=== PATIENT | female | born 1935 | race African-American/Black ===

== ENCOUNTER 2017-09-08 10:53 | Inpatient (IN) ==
[2017-09-08] MEDS ORDERED: ACETAMINOPHEN 325 MG TABLET PO PRN (11:07)
[2017-09-08] MEDS: SODIUM CHLORIDE 0.45% 1,000 ML IV SCH (12:32)
[2017-09-08] MEDS: LEVOFLOXACIN INJ 500 MG in PREMIX 1 EACH IV SCH (13:28)
[2017-09-08 14:05] LABS: % Iron Saturation 14.4 % (18-50); Ferritin 256.2 ng/ml (8-252); Lactic Acid 0.9 MMOL/L (0.4-2.0)
[2017-09-08 14:13] LABS: Folate > 24.0 NG/ML (5.4-24.0); Vitamin B12 1289 PG/ML (211-911)
[2017-09-08] MEDS: cefTRIAXone 1,000 MG in SYRINGE 1 EACH IV SCH (14:50)
[2017-09-08 16:46] LABS: Apearance,Urine Slightly Hazy (Clear); Bacteria,Urine Occasional /HPF (Few); Bilirubin,Urine Negative (Negative); Blood, Urine Negative (Negative); Glucose,Urine (UA) Negative (Negative); Ketones,Urine Negative (Negative); Mucus,Urine Occasional /LPF (Occasional); Nitrite,Urine Positive (Negative); Protein,Urine Negative; RBC,Urine 1 /HPF (0-4); Renal Epithelial Cells,Urine Occasional /HPF (<1); Squamous Epithelial Cell,Urine Occasional /HPF (0-10); Urine Color Yellow (Yellow); Urine Specific Gravity 1.015 (1.001-1.035); Urine Urobilinogen < 2.0 EU/DL (0.2-1.0); WBC,Urine 3 /HPF (0-6)
[2017-09-08] MEDS: FAMOTIDINE 20 MG TABLET PO SCH (20:46)
[2017-09-08] MEDS: BISACODYL 5 MG TABLET PO SCH (20:46)
[2017-09-08] MEDS: DOCUSATE SODIUM 100 MG CAPSULE PO SCH (20:46)
[2017-09-08] MEDS: MONTELUKAST 10 MG TABLET PO SCH (20:46)
[2017-09-09 05:40] LABS: Basophils % 0.4 % (0.0-0.8); Hemoglobin 7.9 GM/DL (12.0-16.0); Immature Granulocytes % 0.4 %; Immature Granulocytes Absolute 0.02 #; Lymphocytes # 0.7 10*3/uL (1.4-4.0); Lymphocytes % 13.6 % (21.3-54.2); Mean Corpuscular HGB Conc 32.9 GM/DL (32-36); Mean Corpuscular Hemoglobin 31 PG (27-34); Mean Corpuscular Volume 93.4 FL (87-102); Monocytes # 0.7 10*3/uL (0.11-0.8); Monocytes % 12.3 % (1.7-12.7); Neutrophils % 73.3 % (38.7-73.9); Platelet Count 213 T/CUMM (130-400); Red Blood Count 2.57 MC/CUMM (3.8-5.5); Red Cell Distribution Width 14.1 % (9.3-17.3); White Blood Count 5.4 T/CUMM (4-12)
[2017-09-09] MEDS ORDERED: SODIUM CHLORIDE 0.9% 1,000 ML IV PRN ×2 (07:47→09:58)
[2017-09-09] MEDS: SODIUM CHLORIDE 0.45% 1,000 ML IV SCH (09:32)
[2017-09-09] MEDS: LEVOFLOXACIN INJ 500 MG in PREMIX 1 EACH IV SCH (09:33)
[2017-09-09] MEDS: PANTOPRAZOLE 40 MG TABLET PO SCH (09:37)
[2017-09-09] MEDS: NITROFURANTOIN MACROCRYSTALS 50 MG CAPSULE PO SCH (09:37)
[2017-09-09] MEDS: ASCORBIC ACID 500 MG TABLET PO SCH (09:37)
[2017-09-09] MEDS: cefTRIAXone 1,000 MG in SYRINGE 1 EACH IV SCH (09:37)
[2017-09-09] MEDS: CETIRIZINE 10 MG TABLET PO SCH (09:38)
[2017-09-09] MEDS: ASPIRIN EC 81 MG TABLET PO SCH (09:38)
[2017-09-09] MEDS: GLUCOSAMINE 500 MG TABLET PO SCH (09:38)
[2017-09-09] MEDS: DOCUSATE SODIUM 100 MG CAPSULE PO SCH ×2 (09:38→20:22)
[2017-09-09] MEDS: BISACODYL 5 MG TABLET PO SCH ×2 (09:38→20:21)
[2017-09-09 16:44] LABS: Hemoglobin 10.8 GM/DL (12.0-16.0)
[2017-09-09] MEDS: MONTELUKAST 10 MG TABLET PO SCH (20:21)
[2017-09-09] MEDS: FAMOTIDINE 20 MG TABLET PO SCH (20:21)
[2017-09-10] MEDS: ASPIRIN EC 81 MG TABLET PO SCH (09:14)
[2017-09-10] MEDS: GLUCOSAMINE 500 MG TABLET PO SCH (09:14)
[2017-09-10] MEDS: ASCORBIC ACID 500 MG TABLET PO SCH (09:14)
[2017-09-10] MEDS: NITROFURANTOIN MACROCRYSTALS 50 MG CAPSULE PO SCH (09:14)
[2017-09-10] MEDS: BISACODYL 5 MG TABLET PO SCH ×2 (09:14→21:03)
[2017-09-10] MEDS: DOCUSATE SODIUM 100 MG CAPSULE PO SCH ×2 (09:14→21:03)
[2017-09-10] MEDS: CETIRIZINE 10 MG TABLET PO SCH (09:15)
[2017-09-10] MEDS: cefTRIAXone 1,000 MG in SYRINGE 1 EACH IV SCH (09:15)
[2017-09-10] MEDS: LEVOFLOXACIN INJ 500 MG in PREMIX 1 EACH IV SCH (09:15)
[2017-09-10] MEDS: PANTOPRAZOLE 40 MG TABLET PO SCH (09:15)
[2017-09-10] MEDS: SODIUM CHLORIDE 0.45% 1,000 ML IV SCH (11:46)
[2017-09-10] MEDS: ONDANSETRON 4 MG/2 ML VIAL IV PRN (13:48)
[2017-09-10] MEDS: FAMOTIDINE 20 MG TABLET PO SCH (21:03)
[2017-09-10] MEDS: MONTELUKAST 10 MG TABLET PO SCH (21:03)
[2017-09-11 06:30] LABS: Basophils % 0.5 % (0.0-0.8); Hematocrit 31.8 VOL% (35.7-47.0); Hemoglobin 10.4 GM/DL (12.0-16.0); Immature Granulocytes % 0.6 %; Immature Granulocytes Absolute 0.04 #; Lymphocytes # 0.6 10*3/uL (1.4-4.0); Lymphocytes % 10.2 % (21.3-54.2); Mean Corpuscular HGB Conc 32.7 GM/DL (32-36); Mean Corpuscular Hemoglobin 30 PG (27-34); Mean Corpuscular Volume 90.3 FL (87-102); Mean Platelet Volume 9.8 FL (9.6-12.0); Monocytes # 0.7 10*3/uL (0.11-0.8); Monocytes % 11.8 % (1.7-12.7); Neutrophils # 4.8 10*3/uL (1.4-7.4); Neutrophils % 76.9 % (38.7-73.9); Platelet Count 203 T/CUMM (130-400); Red Blood Count 3.52 MC/CUMM (3.8-5.5); Red Cell Distribution Width 15.2 % (9.3-17.3); White Blood Count 6.2 T/CUMM (4-12)
[2017-09-11] MEDS: SODIUM CHLORIDE 0.45% 1,000 ML IV SCH (06:31)
[2017-09-11] MEDS: PANTOPRAZOLE 40 MG TABLET PO SCH (08:57)
[2017-09-11] MEDS: GLUCOSAMINE 500 MG TABLET PO SCH (08:57)
[2017-09-11] MEDS: ASPIRIN EC 81 MG TABLET PO SCH (08:57)
[2017-09-11] MEDS: ASCORBIC ACID 500 MG TABLET PO SCH (08:57)
[2017-09-11] MEDS: DOCUSATE SODIUM 100 MG CAPSULE PO SCH ×2 (08:57→20:27)
[2017-09-11] MEDS: CETIRIZINE 10 MG TABLET PO SCH (08:57)
[2017-09-11] MEDS: BISACODYL 5 MG TABLET PO SCH ×2 (08:57→20:27)
[2017-09-11] MEDS: NITROFURANTOIN MACROCRYSTALS 50 MG CAPSULE PO SCH (08:58)
[2017-09-11] MEDS: LEVOFLOXACIN INJ 500 MG in PREMIX 1 EACH IV SCH (09:06)
[2017-09-11] MEDS: cefTRIAXone 1,000 MG in SYRINGE 1 EACH IV SCH (09:06)
[2017-09-11] MEDS: POLYETHYLENE GLYCOL POWDER 17 GM PACK PO SCH (11:52)
[2017-09-11] MEDS: FAMOTIDINE 20 MG TABLET PO SCH (20:27)
[2017-09-11] MEDS: MONTELUKAST 10 MG TABLET PO SCH (20:27)
[2017-09-12] MEDS: SODIUM CHLORIDE 0.45% 1,000 ML IV SCH (02:31)
[2017-09-12] MEDS: CETIRIZINE 10 MG TABLET PO SCH (11:14)
[2017-09-12] MEDS: GLUCOSAMINE 500 MG TABLET PO SCH (11:15)
[2017-09-12] MEDS: BISACODYL 5 MG TABLET PO SCH ×2 (11:16→21:34)
[2017-09-12] MEDS: NITROFURANTOIN MACROCRYSTALS 50 MG CAPSULE PO SCH (11:16)
[2017-09-12] MEDS: POLYETHYLENE GLYCOL POWDER 17 GM PACK PO SCH (11:16)
[2017-09-12] MEDS: ASPIRIN EC 81 MG TABLET PO SCH (11:16)
[2017-09-12] MEDS: DOCUSATE SODIUM 100 MG CAPSULE PO SCH ×2 (11:16→21:34)
[2017-09-12] MEDS: LEVOFLOXACIN INJ 500 MG in PREMIX 1 EACH IV SCH (11:17)
[2017-09-12] MEDS: cefTRIAXone 1,000 MG in SYRINGE 1 EACH IV SCH (11:21)
[2017-09-12] MEDS: PANTOPRAZOLE 40 MG TABLET PO SCH (11:21)
[2017-09-12] MEDS: ASCORBIC ACID 500 MG TABLET PO SCH (11:21)
[2017-09-12] MEDS: guaiFENesin 200 MG/10 ML UDCUP PO PRN ×2 (11:34→21:34)
[2017-09-12] MEDS: MONTELUKAST 10 MG TABLET PO SCH (21:34)
[2017-09-12] MEDS: FAMOTIDINE 20 MG TABLET PO SCH (21:34)
[2017-09-13] MEDS: SODIUM CHLORIDE 0.45% 1,000 ML IV SCH ×2 (03:05→20:56)
[2017-09-13 05:32] LABS: Basophils % 0.7 % (0.0-0.8); Hematocrit 33.4 VOL% (35.7-47.0); Immature Granulocytes % 0.5 %; Immature Granulocytes Absolute 0.03 #; Lymphocytes # 0.7 10*3/uL (1.4-4.0); Lymphocytes % 12.3 % (21.3-54.2); Mean Corpuscular HGB Conc 32.9 GM/DL (32-36); Mean Corpuscular Hemoglobin 30 PG (27-34); Mean Platelet Volume 10.3 FL (9.6-12.0); Monocytes # 0.8 10*3/uL (0.11-0.8); Monocytes % 12.8 % (1.7-12.7); Neutrophils # 4.4 10*3/uL (1.4-7.4); Neutrophils % 73.7 % (38.7-73.9); Platelet Count 201 T/CUMM (130-400); Red Blood Count 3.71 MC/CUMM (3.8-5.5); Red Cell Distribution Width 14.7 % (9.3-17.3)
[2017-09-13 05:58] LABS: Calcium 8.5 MG/DL (8.5-10.1); Osmolality,Calculated 276.5 MOS/KG (273-304); Potassium 3.7 MMOL/L (3.5-5.1)
[2017-09-13] MEDS: DOCUSATE SODIUM 100 MG CAPSULE PO SCH ×2 (11:37→21:07)
[2017-09-13] MEDS: POLYETHYLENE GLYCOL POWDER 17 GM PACK PO SCH (11:38)
[2017-09-13] MEDS: BISACODYL 5 MG TABLET PO SCH ×2 (11:39→21:07)
[2017-09-13] MEDS: GLUCOSAMINE 500 MG TABLET PO SCH (11:39)
[2017-09-13] MEDS: ASCORBIC ACID 500 MG TABLET PO SCH (11:40)
[2017-09-13] MEDS: ASPIRIN EC 81 MG TABLET PO SCH (11:40)
[2017-09-13] MEDS: PANTOPRAZOLE 40 MG TABLET PO SCH (11:41)
[2017-09-13] MEDS: NITROFURANTOIN MACROCRYSTALS 50 MG CAPSULE PO SCH (11:42)
[2017-09-13] MEDS: CETIRIZINE 10 MG TABLET PO SCH (11:42)
[2017-09-13] MEDS: cefTRIAXone 1,000 MG in SYRINGE 1 EACH IV SCH (11:50)
[2017-09-13] MEDS: LEVOFLOXACIN INJ 500 MG in PREMIX 1 EACH IV SCH (11:56)
[2017-09-13] MEDS: MONTELUKAST 10 MG TABLET PO SCH (20:55)
[2017-09-13] MEDS: FAMOTIDINE 20 MG TABLET PO SCH (20:55)
[2017-09-14] MEDS: LEVOFLOXACIN INJ 500 MG in PREMIX 1 EACH IV SCH (09:36)
[2017-09-14] MEDS: cefTRIAXone 1,000 MG in SYRINGE 1 EACH IV SCH (09:36)
[2017-09-14] MEDS: ASPIRIN EC 81 MG TABLET PO SCH (09:37)
[2017-09-14] MEDS: GLUCOSAMINE 500 MG TABLET PO SCH (09:38)
[2017-09-14] MEDS: DOCUSATE SODIUM 100 MG CAPSULE PO SCH ×2 (09:38→21:03)
[2017-09-14] MEDS: CETIRIZINE 10 MG TABLET PO SCH (09:38)
[2017-09-14] MEDS: PANTOPRAZOLE 40 MG TABLET PO SCH (09:38)
[2017-09-14] MEDS: NITROFURANTOIN MACROCRYSTALS 50 MG CAPSULE PO SCH (09:38)
[2017-09-14] MEDS: BISACODYL 5 MG TABLET PO SCH ×2 (09:38→21:03)
[2017-09-14] MEDS: POLYETHYLENE GLYCOL POWDER 17 GM PACK PO SCH (09:38)
[2017-09-14] MEDS: ASCORBIC ACID 500 MG TABLET PO SCH (09:38)
[2017-09-14] MEDS ORDERED: LIDOCAINE 2% 5 ML VIAL ONE (11:11)
[2017-09-14] MEDS ORDERED: PROPOFOL 200 MG/20 ML VIAL IV ONE (11:11)
[2017-09-14] MEDS: MONTELUKAST 10 MG TABLET PO SCH (21:03)
[2017-09-14] MEDS: SODIUM CHLORIDE 0.45% 1,000 ML IV SCH (21:03)
[2017-09-14] MEDS: guaiFENesin 200 MG/10 ML UDCUP PO PRN (21:03)
[2017-09-14] MEDS: FAMOTIDINE 20 MG TABLET PO SCH (21:03)
[2017-09-14] MEDS: ONDANSETRON 4 MG/2 ML VIAL IV PRN (23:28)
[2017-09-15] MEDS: cefTRIAXone 1,000 MG in SYRINGE 1 EACH IV SCH (09:35)
[2017-09-15] MEDS: LEVOFLOXACIN INJ 500 MG in PREMIX 1 EACH IV SCH (09:35)
[2017-09-15] MEDS: POLYETHYLENE GLYCOL POWDER 17 GM PACK PO SCH (09:36)
[2017-09-15] MEDS: ASCORBIC ACID 500 MG TABLET PO SCH (09:36)
[2017-09-15] MEDS: DOCUSATE SODIUM 100 MG CAPSULE PO SCH (09:36)
[2017-09-15] MEDS: GLUCOSAMINE 500 MG TABLET PO SCH (09:37)
[2017-09-15] MEDS: ASPIRIN EC 81 MG TABLET PO SCH (09:37)
[2017-09-15] MEDS: CETIRIZINE 10 MG TABLET PO SCH (09:37)
[2017-09-15] MEDS: PANTOPRAZOLE 40 MG TABLET PO SCH (09:37)
[2017-09-15] MEDS: NITROFURANTOIN MACROCRYSTALS 50 MG CAPSULE PO SCH (09:37)
[2017-09-15] MEDS: BISACODYL 5 MG TABLET PO SCH (09:37)
[2017-09-15 12:03] VITALS: BP 139/59
== END 2017-09-15 14:09 | disposition home or self-care (01) | DRG 194 ==
LOC: N.2E 11:33
PROVIDERS: ADMIT Family Medicine; ATTEND Family Medicine

== ENCOUNTER 2020-11-12 14:25 | Observation (INO) ==
[2020-11-12 16:25] LABS: Basophils % 0.5 % (0.0-0.8); Hematocrit 33.4 VOL% (35.7-47.0); Hemoglobin 10.5 GM/DL (12.0-16.0); Immature Granulocytes Absolute 0.04 #; Lymphocytes # 0.7 10*3/uL (1.4-4.0); Lymphocytes % 17.6 % (21.3-54.2); Mean Corpuscular HGB Conc 31.4 GM/DL (32-36); Mean Corpuscular Volume 106.4 FL (87-102); Mean Platelet Volume 9.9 FL (9.6-12.0); Monocytes % 4.1 % (1.7-12.7); Neutrophils % 76.8 % (38.7-73.9); Platelet Count 157 T/CUMM (130-400); Red Blood Count 3.14 MC/CUMM (3.8-5.5); Red Cell Distribution Width 14.5 % (9.3-17.3); White Blood Count 4.2 T/CUMM (4-12)
[2020-11-12 16:36] LABS: INR 1.2; Partial Thromboplastin Time 26.3 SECS (23.9-33.8)
[2020-11-12 16:46] LABS: Albumin 4.2 G/DL (3.4-5.0); Bilirubin,Total 0.8 MG/DL (0.2-1.0); Calcium 9.5 MG/DL (8.5-10.1); Osmolality,Calculated 282.7 MOS/KG (273-304); Potassium 4.4 MMOL/L (3.5-5.1); Total Protein 7.6 G/DL (6.4-8.2)
[2020-11-12] MEDS ORDERED: SODIUM CHLORIDE 0.9% 500 ML IV STA (17:05)
[2020-11-12 17:50] LABS: Bacteria,Urine Occasional /HPF (Few); Bilirubin,Urine Negative (Negative); Blood, Urine Negative (Negative); Glucose,Urine (UA) Negative (Negative); Ketones,Urine Negative (Negative); Mucus,Urine Occasional /LPF (Occasional); Nitrite,Urine Negative (Negative); Protein,Urine Negative; Squamous Epithelial Cell,Urine Occasional /HPF (0-10); Urine Appearance CLEAR (Clear); Urine Color Yellow (Yellow); Urine Specific Gravity 1.012 (1.001-1.035); Urine Urobilinogen < 2.0 EU/DL (0.2-1.0)
[2020-11-12] MEDS ORDERED: MAGNESIUM SULF RIDER 4 GM/100 ML PREMIX IV PRN (17:58)
[2020-11-12] MEDS ORDERED: MAGNESIUM SULF RIDER 2 GM/50 ML PREMIX IV PRN (17:58)
[2020-11-12] MEDS ORDERED: BISACODYL 5 MG TABLET PO PRN (20:36)
[2020-11-12] MEDS ORDERED: NON-FORMULARY MEDICATION (Ibuprofen-Diphenhydramine Cit [Advil Pm] 200-38 mg Tablet) PO PRN (20:36)
[2020-11-12] MEDS ORDERED: LINACLOTIDE 145 MCG CAPSULE PO PRN (20:36)
[2020-11-12] MEDS: ENOXAPARIN 40 MG/0.4 ML SYRINGE SUBCUT SCH (21:53)
[2020-11-12] MEDS: SODIUM CHLORIDE 0.45% 1,000 ML IV SCH (22:03)
[2020-11-13 03:02] LABS: Calcium 8.7 MG/DL (8.5-10.1); Osmolality,Calculated 286.1 MOS/KG (273-304); Potassium 3.6 MMOL/L (3.5-5.1)
[2020-11-13] MEDS: predniSONE 5 MG TABLET PO SCH (09:27)
[2020-11-13] MEDS: CETIRIZINE 10 MG TABLET PO SCH (09:27)
[2020-11-13] MEDS: GLUCOSAMINE 500 MG TABLET PO SCH (09:27)
[2020-11-13 11:47] LABS: Folate 15.58 NG/ML (5.38-24.0)
[2020-11-13] MEDS: SODIUM CHLORIDE 0.45% 1,000 ML IV SCH (12:20)
[2020-11-13] MEDS: ENOXAPARIN 40 MG/0.4 ML SYRINGE SUBCUT SCH (17:20)
[2020-11-13] MEDS: MEMANTINE 5 MG TABLET PO SCH (21:30)
[2020-11-14 08:36] VITALS: BP 179/52
[2020-11-14] MEDS ORDERED: ACETAMINOPHEN 325 MG TABLET PO PRN (08:56)
[2020-11-14] MEDS: predniSONE 5 MG TABLET PO SCH (09:37)
[2020-11-14] MEDS: MEMANTINE 5 MG TABLET PO SCH (09:38)
[2020-11-14] MEDS: CETIRIZINE 10 MG TABLET PO SCH (09:39)
[2020-11-14] MEDS: GLUCOSAMINE 500 MG TABLET PO SCH (11:51)
== END 2020-11-14 12:09 | disposition home or self-care (01) ==
LOC: N.ED 14:25 → N.EDINP 14:25 → N.TELEN 18:27
PROVIDERS: ADMIT Family Medicine; ATTEND Family Medicine

== ENCOUNTER 2022-05-07 10:17 | Inpatient (IN) ==
[2022-05-07] MEDS ORDERED: ONDANSETRON 4 MG/2 ML VIAL IV STA (10:23)
[2022-05-07] MEDS ORDERED: SODIUM CHLORIDE 0.9% 1,000 ML IV STA (10:23)
[2022-05-07 11:18] LABS: Basophils % 0.3 % (0.0-0.8); Hematocrit 29.2 VOL% (35.7-47.0); Hemoglobin 9.1 GM/DL (12.0-16.0); Immature Granulocytes % 1.1 %; Immature Granulocytes Absolute 0.11 #; Lymphocytes # 0.5 10*3/uL (1.4-4.0); Lymphocytes % 4.9 % (21.3-54.2); Mean Corpuscular HGB Conc 31.2 GM/DL (32-36); Mean Platelet Volume 9.9 FL (9.6-12.0); Monocytes # 0.7 10*3/uL (0.11-0.8); Monocytes % 7.1 % (1.7-12.7); Neutrophils % 86.6 % (38.7-73.9); Platelet Count 210 T/CUMM (130-400); Red Blood Count 2.73 MC/CUMM (3.8-5.5)
[2022-05-07 11:44] LABS: Alanine Aminotransferase 15 U/L (13-56); Alkaline Phosphatase 63 U/L (45-117); Aspartate Amino Transferase 17 U/L (0-37); Blood Urea Nitrogen 22 MG/DL (7-18); Calcium 9.2 MG/DL (8.5-10.1); Carbon Dioxide 25 MMOL/L (21-32); Chloride 107 MMOL/L (98-107); Glucose 104 MG/DL (74-106); Osmolality,Calculated 279.5 MOS/KG (273-304); Potassium 4.2 MMOL/L (3.5-5.1); Sodium 139 MMOL/L (136-145); Total Protein 6.2 G/DL (6.4-8.2)
[2022-05-07 11:55] LABS: INR 1.2; PT Patient Result 13.3 SECS (10.1-12.1); Partial Thromboplastin Time 29.6 SECS (23.7-32.9)
[2022-05-07 12:02] LABS: Bacteria,Urine Few /HPF (Few); Mucus,Urine Occasional /LPF (Occasional); RBC,Urine 7 /HPF (0-4); Squamous Epithelial Cell,Urine Few /HPF (0-10); Urine Color Yellow (Yellow)
[2022-05-07 12:03] LABS: Bilirubin,Urine Negative (Negative); Blood, Urine Small mg/dL (Negative); Glucose,Urine (UA) Negative (Negative); Ketones,Urine Negative (Negative); Nitrite,Urine Positive (Negative); Protein,Urine Negative (Negative); Urine Appearance Slightly Cloudy (Clear); Urine Specific Gravity 1.015 (1.001-1.035); Urine Urobilinogen 0.2 eU/dL (<2.0); Urine pH 5.5 (4.5-8.0)
[2022-05-07 12:34] LABS: Band Neutrophils 4 % (0-10); Lymphocytes 1 % (20-55)
[2022-05-07 12:35] LABS: Barbiturates Screen,Urine Negative (Negative); Benzodiazepines Screen,Urine Negative (Negative); Cannabinoid Screen,Urine Negative (Negative); Opiate Screen,Urine Negative (Negative); Phencyclidine Screen,Urine Negative (Negative)
[2022-05-07 12:36] LABS: Macrocytosis Slight; Ovalocytes Slight
[2022-05-07 12:37] LABS: Hypochromia Slight; Platelet Estimate Normal; Total Cells Counted 100
[2022-05-07] MEDS ORDERED: ACETAMINOPHEN 325 MG TABLET PO PRN (14:08)
[2022-05-07] MEDS ORDERED: ONDANSETRON 4 MG/2 ML VIAL IV PRN (14:08)
[2022-05-07] MEDS: SODIUM CHLORIDE 0.9% 1,000 ML IV SCH ×2 (14:15→22:00)
[2022-05-07] MEDS ORDERED: ACETAMINOPHEN 500 MG TABLET PO PRN (17:17)
[2022-05-07] MEDS ORDERED: NON-FORMULARY MEDICATION (Omeprazole 20 mg capsule,delayed release(DR/EC)) PO PRN (17:17)
[2022-05-07] MEDS: DONEPEZIL 5 MG TABLET PO SCH (20:30)
[2022-05-07] MEDS: MEMANTINE 10 MG TABLET PO SCH (20:30)
[2022-05-07] MEDS: DOCUSATE SODIUM 100 MG CAPSULE PO SCH (20:30)
[2022-05-08 05:45] LABS: Risk Ratio 3.98; VLDL Cholesterol 20.4 MG/DL
[2022-05-08] MEDS ORDERED: ASPIRIN 325 MG TABLET PO STA (06:25)
[2022-05-08] MEDS ORDERED: ATORVASTATIN 20 MG TABLET PO ONE (06:25)
[2022-05-08] MEDS: SODIUM CHLORIDE 0.9% 1,000 ML IV SCH ×2 (07:46→16:59)
[2022-05-08] MEDS: cefTRIAXone 1,000 MG in SODIUM CHLORIDE 0.9% 100 ML IV SCH (07:46)
[2022-05-08] MEDS: NON-FORMULARY MEDICATION (Glucosam-Chon-Msm1-C-Mang-Bosw [Osteo Bi-Flex Triple Strength] 7 PO SCH (12:59)
[2022-05-08] MEDS: ASPIRIN EC 81 MG TABLET PO SCH (12:59)
[2022-05-08] MEDS: FERROUS SULFATE 325 MG TABLET PO SCH (12:59)
[2022-05-08] MEDS: MEMANTINE 10 MG TABLET PO SCH ×2 (12:59→21:35)
[2022-05-08] MEDS: DOCUSATE SODIUM 100 MG CAPSULE PO SCH ×2 (12:59→21:35)
[2022-05-08] MEDS: CLOPIDOGREL 75 MG TABLET PO SCH (13:00)
[2022-05-08] MEDS: predniSONE 5 MG TABLET PO SCH (13:00)
[2022-05-08] MEDS: PANTOPRAZOLE 40 MG TABLET PO SCH (13:00)
[2022-05-08] MEDS ORDERED: LORazepam 2 MG/1 ML VIAL IV ONE (18:20)
[2022-05-08] MEDS: DONEPEZIL 5 MG TABLET PO SCH (21:35)
[2022-05-08] MEDS: ROSUVASTATIN 20 MG TABLET PO SCH (21:35)
[2022-05-09] MEDS: SODIUM CHLORIDE 0.9% 1,000 ML IV SCH ×3 (02:00→19:15)
[2022-05-09] MEDS: cefTRIAXone 1,000 MG in SODIUM CHLORIDE 0.9% 100 ML IV SCH (09:39)
[2022-05-09] MEDS: ASPIRIN EC 81 MG TABLET PO SCH (09:42)
[2022-05-09] MEDS: FERROUS SULFATE 325 MG TABLET PO SCH (09:43)
[2022-05-09] MEDS: CLOPIDOGREL 75 MG TABLET PO SCH (09:43)
[2022-05-09] MEDS: predniSONE 5 MG TABLET PO SCH (09:43)
[2022-05-09] MEDS: PANTOPRAZOLE 40 MG TABLET PO SCH (09:43)
[2022-05-09] MEDS: DOCUSATE SODIUM 100 MG CAPSULE PO SCH ×2 (09:43→20:45)
[2022-05-09] MEDS: MEMANTINE 10 MG TABLET PO SCH ×2 (09:43→20:45)
[2022-05-09] MEDS: NON-FORMULARY MEDICATION (Glucosam-Chon-Msm1-C-Mang-Bosw [Osteo Bi-Flex Triple Strength] 7 PO SCH (09:45)
[2022-05-09] MEDS: DONEPEZIL 5 MG TABLET PO SCH (20:45)
[2022-05-09] MEDS: ROSUVASTATIN 20 MG TABLET PO SCH (20:45)
[2022-05-09] MEDS: MELATONIN 3 MG TABLET PO PRN (20:45)
[2022-05-10] MEDS: SODIUM CHLORIDE 0.9% 1,000 ML IV SCH ×3 (03:10→21:00)
[2022-05-10] MEDS: FERROUS SULFATE 325 MG TABLET PO SCH (10:07)
[2022-05-10] MEDS: ASPIRIN EC 81 MG TABLET PO SCH (10:07)
[2022-05-10] MEDS: predniSONE 5 MG TABLET PO SCH (10:08)
[2022-05-10] MEDS: PANTOPRAZOLE 40 MG TABLET PO SCH (10:08)
[2022-05-10] MEDS: MEMANTINE 10 MG TABLET PO SCH ×2 (10:08→21:00)
[2022-05-10] MEDS: NON-FORMULARY MEDICATION (Glucosam-Chon-Msm1-C-Mang-Bosw [Osteo Bi-Flex Triple Strength] 7 PO SCH (10:08)
[2022-05-10] MEDS: CLOPIDOGREL 75 MG TABLET PO SCH (10:08)
[2022-05-10] MEDS: DOCUSATE SODIUM 100 MG CAPSULE PO SCH ×2 (10:08→21:00)
[2022-05-10] MEDS: cefTRIAXone 1,000 MG in SODIUM CHLORIDE 0.9% 100 ML IV SCH (10:09)
[2022-05-10] MEDS: DONEPEZIL 5 MG TABLET PO SCH (21:00)
[2022-05-10] MEDS: MELATONIN 3 MG TABLET PO PRN (21:00)
[2022-05-10] MEDS: ROSUVASTATIN 20 MG TABLET PO SCH (21:00)
[2022-05-11] MEDS: ALBUTEROL/IPRATROPIUM 3 ML NEB RESP TX SCH ×4 (04:00→23:42)
[2022-05-11 04:57] LABS: Basophils % 0.4 % (0.0-0.8); Hematocrit 24.2 VOL% (35.7-47.0); Hemoglobin 7.5 GM/DL (12.0-16.0); Immature Granulocytes % 1.3 %; Immature Granulocytes Absolute 0.09 #; Lymphocytes # 0.6 10*3/uL (1.4-4.0); Lymphocytes % 8.6 % (21.3-54.2); Mean Corpuscular Volume 106.1 FL (87-102); Mean Platelet Volume 10.6 FL (9.6-12.0); Monocytes # 0.7 10*3/uL (0.11-0.8); Monocytes % 10.7 % (1.7-12.7); Platelet Count 154 T/CUMM (130-400); Red Blood Count 2.28 MC/CUMM (3.8-5.5); Red Cell Distribution Width 13.8 % (9.3-17.3); White Blood Count 6.9 T/CUMM (4-12)
[2022-05-11 05:22] LABS: Albumin 2.4 G/DL (3.4-5.0); Bilirubin,Total 0.4 MG/DL (0.20-1.00); Potassium 3.3 MMOL/L (3.5-5.1); Total Protein 5.5 G/DL (6.4-8.2)
[2022-05-11] MEDS: hydrALAZINE 20 MG/1 ML VIAL IV PRN (05:25)
[2022-05-11] MEDS: SODIUM CHLORIDE 0.9% 1,000 ML IV SCH ×3 (08:29→23:05)
[2022-05-11] MEDS: predniSONE 5 MG TABLET PO SCH (09:14)
[2022-05-11] MEDS: ASPIRIN EC 81 MG TABLET PO SCH (09:14)
[2022-05-11] MEDS: FERROUS SULFATE 325 MG TABLET PO SCH (09:15)
[2022-05-11] MEDS: PANTOPRAZOLE 40 MG TABLET PO SCH (09:15)
[2022-05-11] MEDS: CLOPIDOGREL 75 MG TABLET PO SCH (09:16)
[2022-05-11] MEDS: DOCUSATE SODIUM 100 MG CAPSULE PO SCH ×2 (09:16→22:08)
[2022-05-11] MEDS: MEMANTINE 10 MG TABLET PO SCH ×2 (09:16→22:08)
[2022-05-11] MEDS: cefTRIAXone 1,000 MG in SODIUM CHLORIDE 0.9% 100 ML IV SCH (09:17)
[2022-05-11] MEDS: NON-FORMULARY MEDICATION (Glucosam-Chon-Msm1-C-Mang-Bosw [Osteo Bi-Flex Triple Strength] 7 PO SCH (09:17)
[2022-05-11] MEDS ORDERED: MAGNESIUM SULF RIDER 2 GM/50 ML PREMIX IV PRN (10:25)
[2022-05-11] MEDS ORDERED: POTASSIUM CHLORIDE RIDER 10 MEQ/100 ML PREMIX IV PRN (10:25)
[2022-05-11] MEDS ORDERED: MAGNESIUM SULF RIDER 4 GM/100 ML PREMIX IV PRN (10:25)
[2022-05-11] MEDS: POTASSIUM CHLORIDE 20 MEQ TABLET PO PRN ×3 (11:04→16:07)
[2022-05-11] MEDS: DONEPEZIL 5 MG TABLET PO SCH (22:08)
[2022-05-11] MEDS: ROSUVASTATIN 20 MG TABLET PO SCH (22:08)
[2022-05-12] MEDS: ALBUTEROL/IPRATROPIUM 3 ML NEB RESP TX SCH ×5 (04:00→20:33)
[2022-05-12 05:08] LABS: Basophils % 0.6 % (0.0-0.8); Hematocrit 23.7 VOL% (35.7-47.0); Hemoglobin 7.5 GM/DL (12.0-16.0); Immature Granulocytes % 1.4 %; Lymphocytes # 0.8 10*3/uL (1.4-4.0); Lymphocytes % 10.8 % (21.3-54.2); Mean Corpuscular HGB Conc 31.6 GM/DL (32-36); Mean Corpuscular Volume 104.4 FL (87-102); Mean Platelet Volume 10.2 FL (9.6-12.0); Monocytes # 0.7 10*3/uL (0.11-0.8); Monocytes % 9.5 % (1.7-12.7); Neutrophils % 77.7 % (38.7-73.9); Platelet Count 160 T/CUMM (130-400); Red Blood Count 2.27 MC/CUMM (3.8-5.5); Red Cell Distribution Width 14.3 % (9.3-17.3); White Blood Count 7.1 T/CUMM (4-12)
[2022-05-12 05:41] LABS: Calcium 7.9 MG/DL (8.5-10.1); Osmolality,Calculated 282.1 MOS/KG (273-304); Potassium 3.6 MMOL/L (3.5-5.1)
[2022-05-12] MEDS: FERROUS SULFATE 325 MG TABLET PO SCH (08:23)
[2022-05-12] MEDS: POTASSIUM CHLORIDE 20 MEQ TABLET PO PRN (08:23)
[2022-05-12] MEDS: ASPIRIN EC 81 MG TABLET PO SCH (08:23)
[2022-05-12] MEDS: PANTOPRAZOLE 40 MG TABLET PO SCH (08:23)
[2022-05-12] MEDS: predniSONE 5 MG TABLET PO SCH (08:23)
[2022-05-12] MEDS: CLOPIDOGREL 75 MG TABLET PO SCH (08:23)
[2022-05-12] MEDS: MEMANTINE 10 MG TABLET PO SCH ×2 (08:23→22:10)
[2022-05-12] MEDS: DOCUSATE SODIUM 100 MG CAPSULE PO SCH ×2 (08:23→22:10)
[2022-05-12] MEDS: cefTRIAXone 1,000 MG in SODIUM CHLORIDE 0.9% 100 ML IV SCH (08:24)
[2022-05-12] MEDS: NON-FORMULARY MEDICATION (Glucosam-Chon-Msm1-C-Mang-Bosw [Osteo Bi-Flex Triple Strength] 7 PO SCH (08:53)
[2022-05-12] MEDS ORDERED: FUROSEMIDE 40 MG/4 ML VIAL IV ONE (12:41)
[2022-05-12] MEDS: LEVOFLOXACIN INJ 250 MG/50 ML PREMIX IV SCH (13:12)
[2022-05-12] MEDS: hydrALAZINE 20 MG/1 ML VIAL IV PRN (13:19)
[2022-05-12] MEDS: guaiFENesin 200 MG/10 ML UDCUP PO PRN ×2 (13:19→22:10)
[2022-05-12] MEDS: SODIUM CHLORIDE 0.9% 1,000 ML IV SCH (16:00)
[2022-05-12] MEDS: ROSUVASTATIN 20 MG TABLET PO SCH (22:10)
[2022-05-13] MEDS: ALBUTEROL/IPRATROPIUM 3 ML NEB RESP TX SCH ×4 (00:54→11:27)
[2022-05-13 08:41] LABS: Mucus,Urine Occasional /LPF (Occasional); RBC,Urine 7 /HPF (0-4); Squamous Epithelial Cell,Urine Occasional /HPF (0-10)
[2022-05-13 08:42] LABS: Bilirubin,Urine Negative (Negative); Blood, Urine Small mg/dL (Negative); Glucose,Urine (UA) Negative (Negative); Ketones,Urine Negative (Negative); Nitrite,Urine Negative (Negative); Protein,Urine Negative (Negative); Urine Appearance Clear (Clear); Urine Color Yellow (Yellow); Urine Urobilinogen 0.2 eU/dL (<2.0)
[2022-05-13] MEDS: CLOPIDOGREL 75 MG TABLET PO SCH (09:56)
[2022-05-13] MEDS: MEMANTINE 10 MG TABLET PO SCH (09:56)
[2022-05-13] MEDS: predniSONE 5 MG TABLET PO SCH (09:56)
[2022-05-13] MEDS: ASPIRIN EC 81 MG TABLET PO SCH (09:56)
[2022-05-13] MEDS: FERROUS SULFATE 325 MG TABLET PO SCH (09:56)
[2022-05-13] MEDS: PANTOPRAZOLE 40 MG TABLET PO SCH (09:56)
[2022-05-13] MEDS: DOCUSATE SODIUM 100 MG CAPSULE PO SCH (09:56)
[2022-05-13] MEDS: NON-FORMULARY MEDICATION (Glucosam-Chon-Msm1-C-Mang-Bosw [Osteo Bi-Flex Triple Strength] 7 PO SCH (10:04)
[2022-05-13 12:29] VITALS: BP 162/59
[2022-05-13] MEDS: LEVOFLOXACIN INJ 250 MG/50 ML PREMIX IV SCH (14:14)
== END 2022-05-13 15:18 | DRG 65 ==
LOC: N.EDINP 10:17 → N.ED 10:17 → N.EDINP 15:50 → N.TELEN 16:31
PROVIDERS: ADMIT Family Medicine; ATTEND Family Medicine

== ENCOUNTER 2022-06-19 20:47 | Inpatient (IN) ==
[2022-06-19] MEDS ORDERED: SODIUM CHLORIDE 0.9% 1,000 ML IV STA (21:22)
[2022-06-19 22:10] LABS: Bacteria,Urine Many /HPF (Few); Glucose,Urine (UA) Negative (Negative); Ketones,Urine Negative (Negative); Mucus,Urine Occasional /LPF (Occasional); Nitrite,Urine Negative (Negative); Protein,Urine 100 mg/dL (Negative); RBC,Urine 1 /HPF (0-4); Squamous Epithelial Cell,Urine Occasional /HPF (0-10); Urine Appearance SL CLOUDY (Clear); Urine Color Yellow (Yellow); Urine Specific Gravity 1.015 (1.001-1.035); Urine pH 5.5 (4.5-8.0)
[2022-06-19 22:11] LABS: Bilirubin,Urine Negative (Negative); Blood, Urine Large mg/dL (Negative); Urine Urobilinogen 0.2 eU/dL (<2.0)
[2022-06-19 22:28] LABS: Basophils % 0.1 % (0.0-0.8); Hematocrit 27.9 VOL% (35.7-47.0); Hemoglobin 9.2 GM/DL (12.0-16.0); Immature Granulocytes % 1.7 %; Immature Granulocytes Absolute 0.17 #; Lymphocytes # 0.8 10*3/uL (1.4-4.0); Lymphocytes % 8.3 % (21.3-54.2); Mean Corpuscular Volume 97.9 FL (87-102); Mean Platelet Volume 12.2 FL (9.6-12.0); Monocytes # 0.8 10*3/uL (0.11-0.8); Monocytes % 7.9 % (1.7-12.7); Platelet Count 111 T/CUMM (130-400); Red Blood Count 2.85 MC/CUMM (3.8-5.5); Red Cell Distribution Width 15.4 % (9.3-17.3)
[2022-06-19 22:49] LABS: Albumin 3.3 G/DL (3.4-5.0); Bilirubin,Total 0.8 MG/DL (0.20-1.00); Calcium 8.2 MG/DL (8.5-10.1); Osmolality,Calculated 321.9 MOS/KG (273-304); Total Protein 6.6 G/DL (6.4-8.2)
[2022-06-19 22:53] LABS: Potassium 2.5 MMOL/L (3.5-5.1)
[2022-06-19] MEDS ORDERED: POTASSIUM CHLORIDE 20 MEQ TABLET PO STA (22:58)
[2022-06-20] MEDS ORDERED: ONDANSETRON 4 MG/2 ML VIAL IV PRN (00:46)
[2022-06-20] MEDS ORDERED: ACETAMINOPHEN 325 MG TABLET PO PRN (00:46)
[2022-06-20 01:46] LABS: CKMB % 1.14 %; High Sensitive Troponin I* 300.2 ng/L (0-54)
[2022-06-20] MEDS: SODIUM CHLOR 0.9% KCL 20 MEQ 20 MEQ/1,000 ML BAG IV SCH ×5 (01:54→20:11)
[2022-06-20 04:47] LABS: Basophils % 0.2 % (0.0-0.8); Eosinophils % 0.1 % (0.00-10.9); Hematocrit 25.9 VOL% (35.7-47.0); Hemoglobin 8.6 GM/DL (12.0-16.0); Immature Granulocytes % 2.2 %; Immature Granulocytes Absolute 0.19 #; Lymphocytes # 0.5 10*3/uL (1.4-4.0); Lymphocytes % 5.4 % (21.3-54.2); Mean Corpuscular HGB Conc 33.2 GM/DL (32-36); Mean Corpuscular Volume 101.2 FL (87-102); Monocytes # 0.2 10*3/uL (0.11-0.8); Monocytes % 2.7 % (1.7-12.7); Neutrophils % 89.4 % (38.7-73.9); Platelet Count 91 T/CUMM (130-400); Red Blood Count 2.56 MC/CUMM (3.8-5.5); Red Cell Distribution Width 15.4 % (9.3-17.3); White Blood Count 8.6 T/CUMM (4-12)
[2022-06-20 04:58] LABS: Albumin 2.9 G/DL (3.4-5.0); Bilirubin,Total 0.8 MG/DL (0.20-1.00); Calcium 8.1 MG/DL (8.5-10.1); Lymphocytes 4 % (20-55); Microcytosis Slight; Osmolality,Calculated 320.9 MOS/KG (273-304); Total Cells Counted 100; Total Protein 6.5 G/DL (6.4-8.2)
[2022-06-20 04:59] LABS: Ovalocytes Few; Potassium 3.1 MMOL/L (3.5-5.1)
[2022-06-20 05:03] LABS: CKMB % 1.22 %
[2022-06-20 05:07] LABS: High Sensitive Troponin I* 280.9 ng/L (0-54)
[2022-06-20 05:18] LABS: Platelet Estimate Decreased
[2022-06-20] MEDS ORDERED: POLYETHYLENE GLYCOL POWDER 17 GM PACK PO PRN (06:17)
[2022-06-20] MEDS ORDERED: MELATONIN 3 MG TABLET PO PRN (06:17)
[2022-06-20] MEDS ORDERED: guaiFENesin 200 MG/10 ML UDCUP PO PRN (06:17)
[2022-06-20] MEDS ORDERED: SODIUM CHLORIDE 0.9% 500 ML IV ONE (07:09)
[2022-06-20] MEDS ORDERED: DOCUSATE SODIUM 100 MG CAPSULE PO SCH (09:00)
[2022-06-20 09:05] LABS: CKMB % 1.21 %; High Sensitive Troponin I* 254.8 ng/L (0-54)
[2022-06-20] MEDS: FERROUS SULFATE 325 MG TABLET PO SCH (10:28)
[2022-06-20] MEDS: CLOPIDOGREL 75 MG TABLET PO SCH (10:28)
[2022-06-20] MEDS: DOCUSATE SODIUM 100 MG CAPSULE PO SCH ×2 (10:28→20:27)
[2022-06-20] MEDS: predniSONE 5 MG TABLET PO SCH (10:28)
[2022-06-20] MEDS: MEMANTINE 10 MG TABLET PO SCH ×2 (10:28→20:27)
[2022-06-20] MEDS: ASPIRIN EC 81 MG TABLET PO SCH (10:29)
[2022-06-20] MEDS: POTASSIUM CHLORIDE 20 MEQ TABLET PO SCH ×3 (10:29→20:26)
[2022-06-20] MEDS: PANTOPRAZOLE 40 MG TABLET PO SCH (10:29)
[2022-06-20] MEDS: MEGESTROL 400 MG/10 ML UDCUP PO SCH (10:30)
[2022-06-20] MEDS ORDERED: cloNIDine 0.1 MG TABLET PO PRN (13:28)
[2022-06-20] MEDS: NON-FORMULARY MEDICATION (Glucosam-Chon-Msm1-C-Mang-Bosw [Osteo Bi-Flex Triple Strength] 7 PO SCH (13:48)
[2022-06-20] MEDS ORDERED: cloNIDine 0.1 MG TABLET PO ONE (14:30)
[2022-06-20 17:36] LABS: Calcium 7.2 MG/DL (8.5-10.1); Osmolality,Calculated 324.3 MOS/KG (273-304); Potassium 3.6 MMOL/L (3.5-5.1)
[2022-06-20] MEDS: SODIUM CHLOR 0.45% KCL 20 MEQ 20 MEQ/1,000 ML BAG IV SCH (20:25)
[2022-06-20] MEDS: ROSUVASTATIN 20 MG TABLET PO SCH (20:26)
[2022-06-21 04:49] LABS: Calcium 7.5 MG/DL (8.5-10.1); Osmolality,Calculated 322.3 MOS/KG (273-304); Potassium 3.3 MMOL/L (3.5-5.1)
[2022-06-21] MEDS: SODIUM CHLOR 0.45% KCL 20 MEQ 20 MEQ/1,000 ML BAG IV SCH ×3 (05:15→16:26)
[2022-06-21 07:47] LABS: Basophils % 0.1 % (0.0-0.8); Hematocrit 22.4 VOL% (35.7-47.0); Immature Granulocytes % 1.6 %; Immature Granulocytes Absolute 0.15 #; Lymphocytes # 1.1 10*3/uL (1.4-4.0); Lymphocytes % 11.4 % (21.3-54.2); Mean Corpuscular HGB Conc 31.3 GM/DL (32-36); Mean Corpuscular Volume 103.7 FL (87-102); Mean Platelet Volume 12.6 FL (9.6-12.0); Monocytes # 0.8 10*3/uL (0.11-0.8); Neutrophils % 78.9 % (38.7-73.9); Platelet Count 78 T/CUMM (130-400); Red Blood Count 2.16 MC/CUMM (3.8-5.5); Red Cell Distribution Width 15.9 % (9.3-17.3); White Blood Count 9.4 T/CUMM (4-12)
[2022-06-21] MEDS: NON-FORMULARY MEDICATION (Glucosam-Chon-Msm1-C-Mang-Bosw [Osteo Bi-Flex Triple Strength] 7 PO SCH (09:24)
[2022-06-21] MEDS: predniSONE 5 MG TABLET PO SCH (09:26)
[2022-06-21] MEDS: MEGESTROL 400 MG/10 ML UDCUP PO SCH (09:26)
[2022-06-21] MEDS: PANTOPRAZOLE 40 MG TABLET PO SCH (09:26)
[2022-06-21] MEDS: FERROUS SULFATE 325 MG TABLET PO SCH (09:26)
[2022-06-21] MEDS: POTASSIUM CHLORIDE 20 MEQ TABLET PO SCH ×3 (09:26→20:57)
[2022-06-21] MEDS: MEMANTINE 10 MG TABLET PO SCH ×2 (09:27→20:58)
[2022-06-21] MEDS: CLOPIDOGREL 75 MG TABLET PO SCH (09:27)
[2022-06-21] MEDS: ASPIRIN EC 81 MG TABLET PO SCH (09:27)
[2022-06-21] MEDS: DOCUSATE SODIUM 100 MG CAPSULE PO SCH ×2 (09:27→20:52)
[2022-06-21 10:09] LABS: Anisocytosis 2+; Ovalocytes Few; Platelet Estimate Decreased; Poikilocytosis 1+; Tear Drop Cells Few
[2022-06-21 10:10] LABS: Burr Cells 1+; Macrocytosis 1+
[2022-06-21] MEDS: ROSUVASTATIN 20 MG TABLET PO SCH (20:52)
[2022-06-22 06:43] LABS: Basophils % 0.2 % (0.0-0.8); Hematocrit 24.3 VOL% (35.7-47.0); Hemoglobin 7.5 GM/DL (12.0-16.0); Immature Granulocytes % 1.8 %; Immature Granulocytes Absolute 0.17 #; Lymphocytes # 1.2 10*3/uL (1.4-4.0); Lymphocytes % 12.3 % (21.3-54.2); Mean Corpuscular HGB Conc 30.9 GM/DL (32-36); Mean Corpuscular Volume 105.7 FL (87-102); Mean Platelet Volume 12.6 FL (9.6-12.0); Monocytes # 0.7 10*3/uL (0.11-0.8); Neutrophils % 78.7 % (38.7-73.9); Platelet Count 66 T/CUMM (130-400); Red Cell Distribution Width 16.1 % (9.3-17.3); White Blood Count 9.4 T/CUMM (4-12)
[2022-06-22 06:56] LABS: Potassium 4.1 MMOL/L (3.5-5.1)
[2022-06-22] MEDS: SODIUM CHLOR 0.45% KCL 20 MEQ 20 MEQ/1,000 ML BAG IV SCH ×2 (07:07→22:17)
[2022-06-22 08:43] LABS: Platelet Estimate Decreased
[2022-06-22 08:44] LABS: Anisocytosis 2+; Burr Cells Few; Macrocytosis 1+; Ovalocytes 1+; Poikilocytosis 1+; Tear Drop Cells Few
[2022-06-22] MEDS: POTASSIUM CHLORIDE 20 MEQ TABLET PO SCH ×3 (09:11→22:17)
[2022-06-22] MEDS: CLOPIDOGREL 75 MG TABLET PO SCH (09:11)
[2022-06-22] MEDS: MEMANTINE 10 MG TABLET PO SCH ×2 (09:11→22:17)
[2022-06-22] MEDS: ASPIRIN EC 81 MG TABLET PO SCH (09:11)
[2022-06-22] MEDS: MEGESTROL 400 MG/10 ML UDCUP PO SCH (09:11)
[2022-06-22] MEDS: FERROUS SULFATE 325 MG TABLET PO SCH (09:11)
[2022-06-22] MEDS: PANTOPRAZOLE 40 MG TABLET PO SCH (09:11)
[2022-06-22] MEDS: predniSONE 5 MG TABLET PO SCH (09:21)
[2022-06-22] MEDS: DOCUSATE SODIUM 100 MG CAPSULE PO SCH ×2 (09:22→22:16)
[2022-06-22] MEDS: NON-FORMULARY MEDICATION (Glucosam-Chon-Msm1-C-Mang-Bosw [Osteo Bi-Flex Triple Strength] 7 PO SCH (09:23)
[2022-06-22] MEDS: ROSUVASTATIN 20 MG TABLET PO SCH (22:17)
[2022-06-23 08:49] LABS: Basophils % 0.1 % (0.0-0.8); Eosinophils % 0.1 % (0.00-10.9); Hematocrit 25.4 VOL% (35.7-47.0); Hemoglobin 7.8 GM/DL (12.0-16.0); Immature Granulocytes % 1.7 %; Immature Granulocytes Absolute 0.16 #; Lymphocytes # 1.1 10*3/uL (1.4-4.0); Lymphocytes % 11.3 % (21.3-54.2); Mean Corpuscular HGB Conc 30.7 GM/DL (32-36); Mean Corpuscular Volume 105.8 FL (87-102); Mean Platelet Volume 12.5 FL (9.6-12.0); Monocytes # 0.7 10*3/uL (0.11-0.8); Monocytes % 7.3 % (1.7-12.7); Neutrophils % 79.5 % (38.7-73.9); Red Cell Distribution Width 16.4 % (9.3-17.3); White Blood Count 9.5 T/CUMM (4-12)
[2022-06-23 08:50] LABS: Platelet Count 59 T/CUMM (130-400)
[2022-06-23 09:10] LABS: Calcium 8.4 MG/DL (8.5-10.1); Osmolality,Calculated 302.3 MOS/KG (273-304); Potassium 5.3 MMOL/L (3.5-5.1)
[2022-06-23 09:21] LABS: Macrocytosis 1+; Ovalocytes Few
[2022-06-23 09:22] LABS: Platelet Estimate Decreased
[2022-06-23] MEDS: methylPREDNISolone SOD SUC 40 MG/1 ML VIAL IV SCH ×2 (09:34→17:36)
[2022-06-23 09:52] LABS: Sedimentation Rate-Westergren 127 MM/HR (0-30)
[2022-06-23] MEDS: predniSONE 5 MG TABLET PO SCH (09:58)
[2022-06-23] MEDS: ASPIRIN EC 81 MG TABLET PO SCH (09:58)
[2022-06-23] MEDS: POTASSIUM CHLORIDE 20 MEQ TABLET PO SCH ×3 (09:58→20:53)
[2022-06-23] MEDS: MEMANTINE 10 MG TABLET PO SCH ×2 (09:58→20:52)
[2022-06-23] MEDS: CLOPIDOGREL 75 MG TABLET PO SCH (09:58)
[2022-06-23] MEDS: PANTOPRAZOLE 40 MG TABLET PO SCH (09:59)
[2022-06-23] MEDS: FERROUS SULFATE 325 MG TABLET PO SCH (09:59)
[2022-06-23] MEDS: MEGESTROL 400 MG/10 ML UDCUP PO SCH (09:59)
[2022-06-23] MEDS: DOCUSATE SODIUM 100 MG CAPSULE PO SCH ×2 (09:59→20:52)
[2022-06-23] MEDS: NON-FORMULARY MEDICATION (Glucosam-Chon-Msm1-C-Mang-Bosw [Osteo Bi-Flex Triple Strength] 7 PO SCH (11:00)
[2022-06-23] MEDS: SODIUM CHLOR 0.45% KCL 20 MEQ 20 MEQ/1,000 ML BAG IV SCH ×2 (12:16→20:53)
[2022-06-23] MEDS: ROSUVASTATIN 20 MG TABLET PO SCH (20:52)
[2022-06-24] MEDS: methylPREDNISolone SOD SUC 40 MG/1 ML VIAL IV SCH (01:54)
[2022-06-24] MEDS: methylPREDNISolone SOD SUC 125 MG/2 ML VIAL IV SCH ×2 (09:04→20:52)
[2022-06-24] MEDS: DOCUSATE SODIUM 100 MG CAPSULE PO SCH ×2 (11:21→20:52)
[2022-06-24] MEDS: FERROUS SULFATE 325 MG TABLET PO SCH (11:21)
[2022-06-24] MEDS: POTASSIUM CHLORIDE 20 MEQ TABLET PO SCH ×3 (11:21→20:53)
[2022-06-24] MEDS: ASPIRIN EC 81 MG TABLET PO SCH (11:21)
[2022-06-24] MEDS: PANTOPRAZOLE 40 MG TABLET PO SCH (11:22)
[2022-06-24] MEDS: NON-FORMULARY MEDICATION (Glucosam-Chon-Msm1-C-Mang-Bosw [Osteo Bi-Flex Triple Strength] 7 PO SCH (11:22)
[2022-06-24] MEDS: MEMANTINE 10 MG TABLET PO SCH ×2 (11:22→20:52)
[2022-06-24] MEDS: CLOPIDOGREL 75 MG TABLET PO SCH (11:22)
[2022-06-24] MEDS: MEGESTROL 400 MG/10 ML UDCUP PO SCH (11:22)
[2022-06-24] MEDS: DEXTROSE 5% NACL 0.45% 1,000 ML IV SCH (11:45)
[2022-06-24] MEDS: SODIUM CHLOR 0.45% KCL 20 MEQ 20 MEQ/1,000 ML BAG IV SCH (12:10)
[2022-06-24] MEDS: ROSUVASTATIN 20 MG TABLET PO SCH (20:52)
[2022-06-25 05:46] LABS: Albumin 2.7 G/DL (3.4-5.0); Bilirubin,Total 0.6 MG/DL (0.20-1.00); Osmolality,Calculated 327.9 MOS/KG (273-304); Potassium 5.3 MMOL/L (3.5-5.1); Total Protein 6.1 G/DL (6.4-8.2)
[2022-06-25] MEDS ORDERED: SODIUM CHLORIDE 0.45% 500 ML IV ONE (06:53)
[2022-06-25] MEDS: methylPREDNISolone SOD SUC 125 MG/2 ML VIAL IV SCH (08:23)
[2022-06-25] MEDS: DEXTROSE 5% NACL 0.45% 1,000 ML IV SCH ×3 (08:24→15:00)
[2022-06-25] MEDS ORDERED: hydrALAZINE 20 MG/1 ML VIAL IV PRN (08:56)
[2022-06-25] MEDS: NON-FORMULARY MEDICATION (Glucosam-Chon-Msm1-C-Mang-Bosw [Osteo Bi-Flex Triple Strength] 7 PO SCH (09:12)
[2022-06-25] MEDS: FERROUS SULFATE 325 MG TABLET PO SCH (09:12)
[2022-06-25] MEDS: DOCUSATE SODIUM 100 MG CAPSULE PO SCH (09:12)
[2022-06-25] MEDS: POTASSIUM CHLORIDE 20 MEQ TABLET PO SCH ×2 (09:12→14:03)
[2022-06-25] MEDS: ASPIRIN EC 81 MG TABLET PO SCH (09:12)
[2022-06-25] MEDS: CLOPIDOGREL 75 MG TABLET PO SCH (09:13)
[2022-06-25] MEDS: MEGESTROL 400 MG/10 ML UDCUP PO SCH (09:13)
[2022-06-25] MEDS: MEMANTINE 10 MG TABLET PO SCH (09:13)
[2022-06-25] MEDS: PANTOPRAZOLE 40 MG TABLET PO SCH (09:13)
[2022-06-25 16:04] VITALS: BP 164/68
== END 2022-06-25 16:56 | disposition hospice, inpatient (51) | DRG 545 ==
LOC: EDBD → EDUNIT# → N.ED 20:47 → N.EDINP 06-20 00:19 → N.TELEN 06-20 01:00
PROVIDERS: ADMIT Family Medicine; ATTEND Family Medicine